=== PATIENT | female | born 1975 | race African-American/Black ===

== ENCOUNTER 2016-12-18 16:27 | Emergency (ER) | payer OTHER ==
[2016-12-18 16:34] VITALS: TEMP 98; BMI 28.7
[2016-12-18] MEDS ORDERED: HYDROCHLOROTHIAZIDE 25 MG TABLET (FP) PO ONE (18:11)
--- NOTE | 2016-12-18 18:16 | PDOC ---
History of Present Illness - General Chief Complaint: Blood Pressure Problem Stated Complaint: BP PROBLEM/18wks preg Time Seen by Provider: 12/18/16 17:44 History Source: Patient Exam Limitations: No Limitations - History of Present Illness Initial Comments: 12/21/16 08:24 41 year old female with pmh of essential HTN on 25 mg HCTZ p/w asymptomatic HTN. 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 The patient has no symptoms. Denies CP/headache/sob, blurry vision, abdominal pain. The patient reports that she stopped taking her HCTZ 1 month ago because her BPs were normal. Today, went to a routine visit to Dr. Mosley and her BP was noted to be elevated and the pt was sent to the ER. Past History - Past Medical History Allergies/Adverse Reactions: Allergies Allergy/AdvReac Type Severity Reaction Status Date / Time No Known Allergies Allergy Verified 12/18/16 16:28 Home Medications: Ambulatory Orders Hydrochlorothiazide [Hctz -] 25 mg PO DAILY #30 tablet 12/18/16 NK [No Known Home Medication] 12/18/16 Pnv95/Ferrous Fumarate/FA [ Caplet] 1 each PO DAILY 12/18/16 HTN: Yes - Psycho/Social/Smoking Cessation Hx Suicidal Ideation: No Smoking Status: No Smoking History: Never smoked Have you smoked in the past 12 months: No Number of Cigarettes Smoked Daily: 0 Information on smoking cessation initiated: No Hx Alcohol Use: No Drug/Substance Use Hx: No Substance Use Type: None Review of Systems - Review of Systems Able to Perform ROS?: Yes Comments:: 12/21/16 08:24 GENERAL/CONSTITUTIONAL: No fever, weakness. HEAD, EYES, EARS, NOSE AND THROAT: No change in vision. No ear pain or discharge. No sore throat. CARDIOVASCULAR: No chest pain or shortness of breath. RESPIRATORY: No cough, wheezing, or hemoptysis. GASTROINTESTINAL: No abdominal pain, nausea, vomiting, diarrhea, or decreased PO intolerance. GENITOURINARY: No dysuria, frequency, or change in urination. MUSCULOSKELETAL: No joint or muscle swelling or pain. No neck or back pain. SKIN: No rash NEUROLOGIC: No headache, vertigo, loss of consciousness, or change in strength/ sensation. ENDOCRINE: No increased thirst. No abnormal weight change. HEMATOLOGIC/LYMPHATIC: No anemia, easy bleeding, or history of blood clots. ALLERGIC/IMMUNOLOGIC: No hives or skin allergy. *Physical Exam - Vital Signs Last Vital Signs Temp Pulse Resp BP Pulse Ox 98.0 F 79 18 153/104 100 12/18/16 16:29 12/18/16 16:29 12/18/16 16:29 12/18/16 16:29 12/18/16 16:29 - Physical Exam Comments: 12/21/16 08:24 GENERAL: Awake, alert, and fully oriented, in no acute distress. HEAD: No signs of trauma EYES: PERRLA, EOMI, sclera anicteric, conjunctiva clear ENT: Auricles normal inspection, hearing grossly normal, nares patent, oropharynx clear without exudates. NECK: Normal ROM, supple, no lymphadenopathy, JVD, or masses LUNGS: Breath sounds equal, clear to auscultation bilaterally. No wheezes, and no crackles HEART: Regular rate and rhythm, normal S1 and S2, no murmurs, rubs or gallops ABDOMEN: Soft, nontender, normoactive bowel sounds. No guarding, no rebound. No masses. +gravid EXTREMITIES: Normal range of motion, no edema. No clubbing or cyanosis. No cords, erythema, or tenderness NEUROLOGICAL: Cranial nerves II through XII grossly intact. Normal speech, normal gait SKIN: Warm, Dry, normal turgor, no rashes or lesions noted. Medical Decision Making - Medical Decision Making 12/18/16 18:12 A portion of this note was written by my scribe, under my supervision. Vital Signs Temp Pulse Resp BP Pulse Ox 98.0 F 79 18 153/104 100 12/18/16 16:29 12/18/16 16:29 12/18/16 16:29 12/18/16 16:29 12/18/16 16:29 41 year old female with pmh of essential HTN on 25 mg HCTZ p/w asymptomatic HTN. 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 The patient has no symptoms. Denies CP/headache/sob, blurry vision, abdominal pain. The patient reports that she stopped taking her HCTZ 1 month ago because her BPs were normal. Today, went to a routine visit to Dr. Mosley and her BP was noted to be elevated and the pt was sent to the ER. According to ACEP guidelines, and no need to initiate workup at this time. Will re-initiate her HCTZ (category B). I instructed the patient that she is at risk for pre-eclampsia if she continues to have poorly controlled HTN. Pt verbalizes understanding and agrees with plan. Return precautions given. *DC/Admit/Observation/Transfer Diagnosis at time of Disposition: Asymptomatic hypertension - Discharge Dispostion Disposition: HOME Condition at time of disposition: Stable Admit: No - Prescriptions Prescriptions: Hydrochlorothiazide [Hctz -] 25 mg PO DAILY #30 tablet - Referrals Referrals: Zach Mosley MD [Primary Care Provider] - - Patient Instructions Printed Discharge Instructions: DI for High Blood Pressure, How to Monitor Your Blood Pressure at Home Additional Instructions: Continue to take the 25 mg hydrochlorothiazide daily. If you do not take your blood pressure medications, you are at higher risk for miscarriage if you leave your blood pressure too elevated. Follow up with your doctors. If you experience abdominal pain, vaginal bleeding, headaches, chest pain, shortness of breath, please return to the ER for further evaluation.
[2016-12-18] MEDS ORDERED: HYDROCHLOROTHIAZIDE 25 MG TABLET (FP) ONE (18:21)
[2016-12-18 18:53] VITALS: BP 154/99; PULSE 73
== END 2016-12-18 18:53 | disposition home or self-care (01) ==
LOC: JERFT 16:27 → JER 16:27
DX: O26.892 Other specified pregnancy related conditions, second trimester (principal); I10 Essential (primary) hypertension; Z3A.18 18 weeks gestation of pregnancy
CPT/HCPCS: 99282-25